=== PATIENT | male | born 1950 | race Caucasian/White ===

== ENCOUNTER 2017-03-03 12:07 | Emergency (ER) | payer MEDICARE ==
[~2017-03-03] VITALS: Ht 175.3 cm; Wt 77.1 kg
[2017-03-03 12:07] VITALS: BP 120/73
== END 2017-03-03 12:53 | disposition home or self-care (01) ==
LOC: ER 12:10
DX: S61.101A Unspecified open wound of right thumb with damage to nail, initial encounter (principal); Z90.49 Acquired absence of other specified parts of digestive tract; W26.0XXA Contact with knife, initial encounter; Y93.89 Activity, other specified; Y92.9 Unspecified place or not applicable; Y99.8 Other external cause status
CPT/HCPCS: 99282; A4606; Z7610